=== PATIENT | male | born 1985 | race African-American/Black ===

== ENCOUNTER 2022-09-05 02:14 | Emergency (ER) | payer BC ==
[2022-09-05 03:39] LABS: Bilirubin Negative (Negative); Blood, Urine 3+ (Negative); Clarity Turbid (Clear); Glucose, Urine (Dipstick) Normal (Negative); Ketone, Urine Negative (Negative); Leukocyte Negative Leu/uL (Negative); Nitrite Negative (Negative); Protein, Urine (Dipstick) 20 mg/dL (Neg-Trace); RBC/HPF Greater than 50 HPF (0-3); Specific Gravity, Urine 1.025 (1.002-1.036); Squamous Epithelial None Seen HPF (0-3); WBC/HPF 0-3 HPF (0-3); pH, Urine 7.5 (5.0-9.0)
[2022-09-05 03:41] LABS: Bacteria/HPF Rare-Few HPF (None Seen)
[2022-09-05] MEDS ORDERED: Ketorolac Tromethamine 30 MG/ML VIAL ONE (04:01)
[2022-09-05] MEDS ORDERED: Ondansetron PF 4 MG/2 ML Vial ONE (04:01)
[2022-09-05 05:04] LABS: #Basophils 0.1 thou/uL (0.0-0.2); #Eosinphils 0.1 thou/uL (0.0-0.7); #Lymphocytes 1.7 thou/uL (1.20-3.40); #Monocytes 0.9 thou/uL (0.11-0.59); #Neutrophils 13.5 thou/uL (1.40-6.50); %Basophils 0.4 % (0.0-1.0); %Eosinophils 0.6 % (0.0-10.0); %Lymphocytes 10.6 % (21.0-51.0); %Monocytes 5.3 % (0.0-10.0); Hemoglobin 13.7 g/dL (14.0-18.0); Mean Corpuscular HGB CONC 33.6 g/dL (32.0-36.0); Mean Corpuscular Hemoglobin 31.3 pg (27.0-31.0); Mean Corpuscular Volume 93.1 fl (78.0-98.0); Mean Platelet Volume 9.4 fL (7.4-10.4); Platelet Count 222 10x3/uL (130-400); RBC Distribution Width 12.9 % (11.5-14.5); Red Blood Cell (RBC) Count 4.37 mill/uL (4.70-6.10); White Blood Cell (WBC) Count 16.2 10x3/uL (4.8-10.8)
[2022-09-05 06:26] LABS: Albumin 3.9 g/dL (3.5-5.0)
[2022-09-05 06:27] LABS: Chloride 104 mmol/L (98-107); Potassium 4.3 mmol/L (3.5-5.1); Sodium 138 mmol/L (136-145)
[2022-09-05 06:29] LABS: Globulin 2.7 g/dL (2.4-3.5); Glucose 112 mg/dL (70-105); Protein, Total 6.6 g/dL (6.0-8.3)
[2022-09-05 06:30] LABS: Anion Gap 10 mmol/L (10-20); Bilirubin, Total 0.4 mg/dL (0.2-1.2); Carbon Dioxide 28 mmol/L (22-29)
[2022-09-05 06:31] LABS: Alkaline Phosphatase 34 U/L (40-110)
[2022-09-05 06:32] LABS: Calc. Creatinine Clearance 0 mL/min (70-130); Estimated GFR 59
[2022-09-05 06:33] LABS: BUN (Urea Nitrogen) 10 mg/dL (8.9-20.6)
[2022-09-05 06:34] LABS: ALT (SGPT) 11 U/L (8-55); AST (SGOT) 14 U/L (5-34)
[2022-09-05] MEDS ORDERED: Iopamidol-370 76% 500 ML MDV (1 ML CHARGE) ONE (11:14)
== END 2022-09-05 06:30 | disposition home or self-care (01) ==
LOC: ERS 02:14
DX: N13.2 Hydronephrosis with renal and ureteral calculous obstruction (principal); D72.829 Elevated white blood cell count, unspecified
CPT/HCPCS: 36415; 74177; 80053; 81003; 81015; 85025; 96374; 96375; J1885; J2405; Q9967

== ENCOUNTER 2023-04-12 12:40 | Emergency (ER) | payer BC ==
[2023-04-12] MEDS ORDERED: Acetaminophen 500 MG TAB ONE (13:20)
[2023-04-12 14:17] LABS: SARS-CoV-2 NAA Rapid Test Not Detected (NotDetected)
== END 2023-04-12 15:30 | disposition home or self-care (01) ==
LOC: ERS 12:40
DX: R05.9 Cough, unspecified (principal); Z20.822 Contact with and (suspected) exposure to COVID-19
CPT/HCPCS: 71046